=== PATIENT | male | born 1965 | race Native Hawaiian/Other Pacific Islander ===

== ENCOUNTER 2021-12-28 11:29 | Emergency (ER) | payer MEDICARE, MEDICAID ==
[~2021-12-28] VITALS: Ht 167.6 cm; Wt 100.0 kg
[2021-12-28 12:47] VITALS: BP 138/65
== END 2021-12-28 13:19 | disposition home or self-care (01) ==
LOC: EMS 11:29
DX: M25.562 Pain in left knee (principal); E11.9 Type 2 diabetes mellitus without complications; V49.9XXA Car occupant (driver) (passenger) injured in unspecified traffic accident, initial encounter; Y93.89 Activity, other specified; Y92.89 Other specified places as the place of occurrence of the external cause; Y99.8 Other external cause status
CPT/HCPCS: 99283; Z7502

== ENCOUNTER 2021-12-31 10:34 | Emergency (ER) | payer MEDICARE, MEDICAID ==
[~2021-12-31] VITALS: Ht 162.6 cm; Wt 100.0 kg
[2021-12-31 10:55] VITALS: BP 131/92
[2021-12-31] MEDS ORDERED: IBUP-2070 PO (10:58)
[2021-12-31] MEDS ORDERED: CYCL10TA17 PO (10:58)
== END 2021-12-31 11:05 | disposition home or self-care (01) ==
LOC: EMS 10:34
DX: M54.50 Low back pain, unspecified (principal); E11.9 Type 2 diabetes mellitus without complications; V49.49XA Driver injured in collision with other motor vehicles in traffic accident, initial encounter; Y93.89 Activity, other specified; Y92.89 Other specified places as the place of occurrence of the external cause; Y99.8 Other external cause status
CPT/HCPCS: 82962; 99283